=== PATIENT | male | born 1985 | race Caucasian/White ===

== ENCOUNTER 2024-05-11 12:13 | Emergency (ER) | payer BC ==
[2024-05-11] MEDS: Ketorolac 30 MG/ML SDV IM ONE (13:22)
[2024-05-11] MEDS: Lidocaine 4% 1 each Patch TOP STA (13:23)
[2024-05-11] MEDS: Orphenadrine 60 MG/2 ML Inj IM ONE (13:23)
== END 2024-05-11 13:44 | disposition home or self-care (01) ==
LOC: MW.ED 12:13
DX: M54.42 Lumbago with sciatica, left side (principal); Z79.899 Other long term (current) drug therapy; Z75.8 Other problems related to medical facilities and other health care
CPT/HCPCS: 96372; 99283; A9270; J1885; J2360

== ENCOUNTER 2024-05-25 11:38 | Emergency (ER) | payer BC | END 2024-05-25 13:09 | disposition home or self-care (01) | LOC: MW.ED 11:38 | DX: M54.42 Lumbago with sciatica, left side (principal); F17.210 Nicotine dependence, cigarettes, uncomplicated; Z75.8 Other problems related to medical facilities and other health care | CPT/HCPCS: 99283 ==